=== PATIENT | female | born 1990 | race Caucasian/White ===

== ENCOUNTER 2017-11-06 12:08 | Emergency (ER) | payer MEDICAID ==
[~2017-11-06] VITALS: Ht 152.4 cm; Wt 45.8 kg
[2017-11-06 12:26] VITALS: BP 123/79
[2017-11-06] MEDS ORDERED: DIAZEPAM 5 MG TABLET ONE (14:00)
[2017-11-06] MEDS ORDERED: DIAZEPAM 5 MG TABLET PO ONE (14:00)
== END 2017-11-06 14:20 ==
LOC: ED 14:00
DX: F41.1 Generalized anxiety disorder (principal); F11.10 Opioid abuse, uncomplicated
CPT/HCPCS: 99284